=== PATIENT | female | born 1970 | race Caucasian/White ===

== ENCOUNTER 2018-04-30 19:19 | Emergency (ER) | payer SELFPAY ==
[2018-04-30 19:31] VITALS: TEMP 99.1
--- NOTE | 2018-04-30 19:58 | ED PDOC ---
HPI: Hypertension/Hypotension Time Seen by Provider: 04/30/18 19:35 Chief Complaint (Nursing): Palpitations History Per: Patient History/Exam Limitations: no limitations Additional Complaint(s): Pt reports constant palpitations X 2 days, resolved at this time. Pt was evaluated by PMD 2 weeks ago and found to be hypertensive, started on Bystolic. Palpitations started 2 days ago, was evaluated by Dr. Mchugh this AM, advised to come to ED. Denies CP, SOB, leg swelling, leg pain, recent travel. Past Medical History Reviewed: Nursing Documentation, Vital Signs Vital Signs: Last Vital Signs Temp 99.1 F 04/30/18 19:24 Pulse 63 04/30/18 19:24 Resp 17 04/30/18 19:24 BP 124/81 04/30/18 19:24 Pulse Ox 97 04/30/18 19:24 - Medical History PMH: HTN - Family History Family History: States: Unknown Family Hx - Living Arrangements Living Arrangements: With Family - Social History Current smoker - smoking cessation education provided: No Alcohol: None - Immunization History Hx Tetanus Toxoid Vaccination: Yes - Home Medications Home Medications: Ambulatory Orders Medication Instructions Recorded Amoxicillin 05/24/14 Amoxicillin/Clavulanate Pota 1 tab PO BID #14 tab 05/24/14 [Augmentin 875 mg-125 mg] Sulfamethoxazole/Trimethopri 2 tab PO BID #14 tab 05/24/14 [Bactrim Ds 800 mg-160 mg] - Allergies Allergies/Adverse Reactions: Allergies Allergy/AdvReac Type Severity Reaction Status Date / Time Penicillins Allergy Mild RASH Verified 04/30/18 19:31 Review of Systems Constitutional: Negative for: Fever, Chills Cardiovascular: Positive for: Palpitations. Negative for: Chest Pain Respiratory: Negative for: Cough, Shortness of Breath Gastrointestinal: Negative for: Nausea, Vomiting, Abdominal Pain, Diarrhea Genitourinary Female: Negative for: Dysuria, Hematuria Musculoskeletal: Negative for: Neck Pain, Back Pain Skin: Negative for: Rash, Lesions Neurological: Negative for: Headache, Dizziness Physical Exam - Reviewed Nursing Documentation Reviewed: Yes Vital Signs Reviewed: Yes - Physical Exam Appears: Positive for: Well, No Acute Distress Head Exam: Positive for: ATRAUMATIC, NORMAL INSPECTION Skin: Positive for: Normal Color, Warm, Dry Eye Exam: Positive for: Normal appearance, EOMI, PERRL Neck: Positive for: Normal, Painless ROM, Supple Cardiovascular/Chest: Positive for: Regular Rate, Rhythm. Negative for: Tachycardia Respiratory: Positive for: Normal Breath Sounds. Negative for: Rales, Rhonchi, Wheezing Gastrointestinal/Abdominal: Positive for: Normal Exam Back: Positive for: Normal Inspection Extremity: Positive for: Normal ROM. Negative for: Tenderness, Pedal Edema, Calf Tenderness, Swelling Neurologic/Psych: Positive for: form setter II-XII, Oriented - Laboratory Results Result Diagrams: 04/30/18 20:20 04/30/18 20:20 - ECG O2 Sat by Pulse Oximetry: 97 Medical Decision Making Medical Decision Makin yo female with resolved palpitations. - labs - EKG - CXR Time: 2214 -- Spoke to Dr. Mchugh who agrees with discharge home. 23:10 UA reviewed, + bacteria, noitifed of UTI, called patient for pharmacy info, [facility], [address] Voicemail left for pharmacist, Macrobid 100 mg PO bid X 7 days. Scribe Attestation: Documented by Sayra Buchanan acting as a scribe for Dr. Khushboo Moore MD. Provider Scribe Attestation: All medical record entries made by the Scribe were at my direction and personally dictated by me. I have reviewed the chart and agree that the record accurately reflects my personal performance of the history, physical exam, medical decision making, and the department course for this patient. I have also personally directed, reviewed, and agree with the discharge instructions and disposition. Disposition - Clinical Impression Clinical Impression: Palpitations - Disposition Referrals: Rony Mchugh MD [Family Provider] - Condition: GOOD Instructions: Palpitations Forms: [facility] (Croatian)
[2018-04-30 20:58] LABS: BASO # 0.1 K/uL (0.0-0.2); BASO % 0.9 % (0.0-2.0); EOS # 0.2 K/uL (0.0-0.7); EOS % 1.7 % (0.0-4.0); LYMPH # 2.1 K/uL (1.0-4.3); LYMPH % 23.9 % (20.0-40.0); MEAN CELL VOLUME 86.8 fl (81.0-99.0); MEAN CORPUSCULAR HEMOGLOBIN 28.9 pg (27.0-31.0); MEAN CORPUSCULAR HGB CONC 33.3 g/dL (33.0-37.0); MEAN PLATELET VOLUME 8.7 fl (7.2-11.7); MONO # 0.8 K/uL (0.0-0.8); MONO % 9.6 % (0.0-10.0); NEUT # 5.6 K/uL (1.8-7.0); NEUT % 63.9 % (50.0-75.0); RBC 4.5 Mil/uL (3.80-5.20); RED CELL DISTRIBUTION WIDTH 13.8 % (11.5-14.5); WHITE BLOOD COUNT 8.8 K/uL (4.8-10.8)
[2018-04-30 21:03] LABS: PROTHROMBIN TIME 10.6 Seconds (9.8-13.1)
[2018-04-30 21:05] LABS: PARTIAL THROMBOPLASTIN TIME 29.2 Seconds (25.6-37.1)
[2018-04-30 21:09] LABS: GFR AFRICAN-AMERICAN > 60; GFR NON-AFRICAN AMERICAN 60
[2018-04-30 21:22] LABS: ALB/GLOB RATIO 1.2 (1.0-2.1); ALBUMIN 4.3 g/dL (3.5-5.0); ALT/SGPT 29 U/L (9-52); AST/SGOT 37 U/L (14-36); BLOOD UREA NITROGEN 15 mg/dl (7-17)
[2018-04-30 22:32] LABS: URINE BILIRUBIN NEGATIVE (NEGATIVE); URINE BLOOD NEGATIVE (NEGATIVE); URINE CLARITY SL CLOUDY (Clear); URINE COLOR YELLOW (YELLOW); URINE GLUCOSE (UA) NEG (Normal)
[2018-04-30 22:33] LABS: SQUAMOUS EPITHIAL 3 /hpf (0-5); URINE BACTERIA FEW (<OCC); URINE LEUKOCYTE ESTERASE NEG Leu/uL (Negative); URINE PROTEIN NEGATIVE (NEGATIVE); URINE UROBILINOGEN 0.2 mg/dL (0.2-1.0)
[2018-04-30 23:03] VITALS: BP 124/77; PULSE 69; RESP 16
[2018-04-30 23:12] VITALS: O2SAT 97
--- NOTE | 2018-05-01 07:37 | CARD ---
APPROVED REPORT Date of service: 04/30/2018 <Conclusion> Normal sinus rhythm Normal ECG
== END 2018-04-30 23:03 | disposition home or self-care (01) ==
LOC: H.ER 19:19
DX: R00.2 Palpitations (principal); I10 Essential (primary) hypertension